=== PATIENT | female | born 1975 | race Caucasian/White ===

== ENCOUNTER 2024-10-26 19:28 | Observation (INO) | payer OTHER ==
[~2024-10-26] VITALS: Ht 162.6 cm; Wt 83.9 kg
[2024-10-26] MEDS: ADENOSINE 6 MG/2 ML VIAL IV STA ×2 (20:18→20:19)
[2024-10-26 20:19] LABS: BASOPHILS # (AUTO) 0.1 (0.0-0.1); BASOPHILS % 0.7 % (0.0-1.0); EOSINOPHILS # (AUTO) 0.3 (0.0-0.4); EOSINOPHILS % 2.6 % (0.0-6.0); HEMATOCRIT 39.9 % (34.2-44.1); HEMOGLOBIN 13.6 g/dL (12.0-16.0); LYMPHOCYTES # (AUTO) 3.8 (1.0-3.2); LYMPHOCYTES % 31.3 % (18.0-39.1); MEAN CORPUSCULAR HEMOGLOBIN 29.5 pg (28-32); MEAN CORPUSCULAR HGB CONC 34.1 g/dL (31-35); MEAN CORPUSCULAR VOLUME 86.6 fL (81-99); MONOCYTES # (AUTO) 0.9 (0.2-0.8); MONOCYTES % 7.6 % (4.4-11.3); NEUTROPHILS % 57.5 % (38.7-80.0); PLATELET COUNT 428 x10e3/uL (140-360); RED BLOOD COUNT 4.61 x10e6/uL (3.6-5.1); RED CELL DISTRIBUTION WIDTH 13.1 % (11.7-14.4); WHITE BLOOD COUNT 12.15 x10e3/uL (4.8-10.8)
[2024-10-26] MEDS ORDERED: ONDANSETRON HCL INJ 2MG/ML 2ML 2 MG/ML VIAL IV PRN (20:30)
[2024-10-26] MEDS: DIGOXIN INJ 0.25 MG/ML 2 ML AMP IV STA (20:31)
[2024-10-26 20:37] LABS: ETHANOL < 10.0 mg/dL (0.0-10.0); LIPASE 43 U/L (8-78)
[2024-10-26 20:38] LABS: ALANINE AMINOTRANSFERASE 11 IU/L (0-55); ALBUMIN 3.9 g/dL (3.5-5.0); ALBUMIN/GLOBULIN RATIO 1.2 (0.8-2.0); ALKALINE PHOSPHATASE 87 IU/L (40-150); ANION GAP 16.7 mmol/L (8-16); BILIRUBIN,TOTAL 0.2 mg/dL (0.2-1.2); BLOOD UREA NITROGEN 9 mg/dL (7-26); BUN/CREATININE RATIO 13 (6-25); CALCIUM 9.3 mg/dL (8.4-10.2); CARBON DIOXIDE 18 mmol/L (22-29); CHLORIDE 107 mmol/L (98-107); CREATINE KINASE 65 IU/L (29-168); EST GLOMERULAR FILTRATION RATE 107 ML/MIN (>=60); GLUCOSE 107 mg/dL (74-118); POTASSIUM 3.7 mmol/L (3.5-5.1); SODIUM 138 mmol/L (136-145); TOTAL PROTEIN 7.2 g/dL (6.5-8.1)
[2024-10-26] MEDS: METOPROLOL TARTRATE INJ 1 MG/ML VIAL IV STA (20:44)
[2024-10-26 20:45] LABS: TROPONIN I < 0.001 ng/mL (0-0.300)
[2024-10-26] MEDS: SODIUM CHLORIDE 0.9% 1000ML 1,000 ML IV SCH (21:00)
[2024-10-26 21:48] LABS: AMPHETAMINES SCREEN,URINE NEGATIVE (NEGATIVE); BENZODIAZEPINES SCREEN,URINE NEGATIVE (NEGATIVE); CANNABINOIDS SCREEN,URINE NEGATIVE (NEGATIVE); COCAINE SCREEN,URINE NEGATIVE (NEGATIVE); METHADONE SCREEN, URINE NEGATIVE (NEGATIVE); OPIATES SCREEN,URINE NEGATIVE (NEGATIVE); PHENCYCLIDINE SCREEN,URINE NEGATIVE (NEGATIVE); PREGNANCY TEST, URINE NEGATIVE (NEGATIVE)
[2024-10-26 22:25] VITALS: PULSE 87; RESP 20; O2SAT 99
[2024-10-26 23:00] VITALS: PULSE 80; RESP 16; TEMP 98
[2024-10-26 23:45] VITALS: BP 119/78; PULSE 71; RESP 18; TEMP 98.6; O2SAT 99
[2024-10-27] VITALS: BP 119/78; PULSE 71; RESP 18; TEMP 98.6; O2SAT 99
[2024-10-27] MEDS ORDERED: PAXIL20 MG PO (00:05)
[2024-10-27] MEDS ORDERED: losartan/hctz (00:05)
[2024-10-27] MEDS ORDERED: NEURONTIN300 MG PO (00:05)
[2024-10-27] MEDS ORDERED: AMLODIPINE BESY10 MG PO (00:05)
[2024-10-27] MEDS ORDERED: PANTOPRAZOLE SO40 MG PO (00:05)
[2024-10-27] MEDS ORDERED: LOSARTAN-HCTZ1 EAC2 PO (00:05)
[2024-10-27] MEDS ORDERED: METHOCARBAMOL750 MG PO (00:05)
[2024-10-27] MEDS ORDERED: IBUPROFEN800 MG PO (00:05)
[2024-10-27] MEDS ORDERED: DIPHENHYDRAMINE HCL 25 MG CAP PO PRN (00:30)
[2024-10-27] MEDS ORDERED: ALBUTEROL/IPRATROPIUM 3 ML NEB NEB PRN (00:30)
[2024-10-27] MEDS ORDERED: MELATONIN 5 MG TABLET PO PRN (00:30)
[2024-10-27] MEDS ORDERED: DOCUSATE SODIUM 100 MG CAP PO PRN (00:30)
[2024-10-27] MEDS ORDERED: ACETAMINOPHEN 325 MG TAB PO PRN (00:30)
[2024-10-27] MEDS ORDERED: POTASSIUM CHLORIDE 20 MEQ TAB CR PO PRN (00:30)
[2024-10-27] MEDS ORDERED: LIDOCAINE 4% PATCH TP PRN (00:30)
[2024-10-27] MEDS ORDERED: BENZONATATE 100 MG CAP PO PRN (00:30)
[2024-10-27] MEDS ORDERED: HYDRALAZINE HCL 20 MG/ML VIAL IV PRN (00:30)
[2024-10-27] MEDS ORDERED: DEXTROSE 50% SYRINGE 50 ML IV PRN (00:30)
[2024-10-27] MEDS ORDERED: SIMETHICONE 80 MG CHEW PO PRN (00:30)
[2024-10-27] MEDS: METOPROLOL TARTRATE 25 MG TAB PO SCH (01:41)
[2024-10-27 04:00] VITALS: BP 112/66; PULSE 58; RESP 18; TEMP 98.3; O2SAT 98
[2024-10-27 05:59] LABS: BASOPHILS # (AUTO) 0.1 (0.0-0.1); BASOPHILS % 0.9 % (0.0-1.0); EOSINOPHILS # (AUTO) 0.2 (0.0-0.4); EOSINOPHILS % 1.8 % (0.0-6.0); HEMATOCRIT 37.2 % (34.2-44.1); HEMOGLOBIN 12.4 g/dL (12.0-16.0); LYMPHOCYTES # (AUTO) 2.4 (1.0-3.2); LYMPHOCYTES % 27.7 % (18.0-39.1); MEAN CORPUSCULAR HEMOGLOBIN 29.3 pg (28-32); MEAN CORPUSCULAR HGB CONC 33.3 g/dL (31-35); MEAN CORPUSCULAR VOLUME 87.9 fL (81-99); MONOCYTES # (AUTO) 0.7 (0.2-0.8); MONOCYTES % 8.5 % (4.4-11.3); NEUTROPHILS # (AUTO) 5.2 (2.1-6.9); NEUTROPHILS % 60.9 % (38.7-80.0); PLATELET COUNT 355 x10e3/uL (140-360); RED BLOOD COUNT 4.23 x10e6/uL (3.6-5.1); RED CELL DISTRIBUTION WIDTH 12.9 % (11.7-14.4); WHITE BLOOD COUNT 8.55 x10e3/uL (4.8-10.8)
[2024-10-27 06:23] VITALS: PULSE 74; RESP 22; O2SAT 98
[2024-10-27 06:36] LABS: ALBUMIN 3.4 g/dL (3.5-5.0); ALBUMIN/GLOBULIN RATIO 1.2 (0.8-2.0); ANION GAP 12.5 mmol/L (8-16); BILIRUBIN,TOTAL 0.3 mg/dL (0.2-1.2); CALCIUM 8.9 mg/dL (8.4-10.2); CREATININE, SERUM 0.69 mg/dL (0.57-1.11); POTASSIUM 3.5 mmol/L (3.5-5.1); TOTAL PROTEIN 6.2 g/dL (6.5-8.1)
[2024-10-27 06:57] LABS: CHOL/HDL RATIO 5.1 (3.0-3.6)
[2024-10-27 07:08] LABS: TROPONIN I 0.122 ng/mL (0-0.300)
[2024-10-27 07:17] LABS: THYROID STIMULATING HORMONE 1.681 uIU/mL (0.350-4.940)
[2024-10-27 07:35] VITALS: BP 105/66; PULSE 67; RESP 20; TEMP 98; O2SAT 96
[2024-10-27 09:15] VITALS: BP 105/66; PULSE 67; RESP 20; TEMP 98; O2SAT 96
[2024-10-27 09:50] VITALS: BP 105/66; PULSE 67
[2024-10-27] MEDS: METOPROLOL SUCCINATE 50 MG TAB XL PO SCH (09:50)
[2024-10-27] MEDS: PANTOPRAZOLE SOD 40 MG TABEC PO SCH (09:51)
[2024-10-27] MEDS ORDERED: METOPROLOL SUCC50 MG PO (15:07)
[2024-10-27] MEDS ORDERED: ENOXAPARIN SOD INJ 40 MG/0.4 ML SYR SC SCH (17:00)
== END 2024-10-27 16:24 | disposition home or self-care (01) ==
LOC: ER 19:35 → ERHOLD 20:25 → MED/SURG2 23:31
PROVIDERS: ADMIT Internal Medicine; ATTEND Internal Medicine
DX: I47.10 Supraventricular tachycardia, unspecified (principal); I10 Essential (primary) hypertension; F17.210 Nicotine dependence, cigarettes, uncomplicated; E66.9 Obesity, unspecified; Z68.31 Body mass index [BMI] 31.0-31.9, adult; K21.9 Gastro-esophageal reflux disease without esophagitis; F41.9 Anxiety disorder, unspecified
CPT/HCPCS: 36415 ×2; 71045; 80053 ×2; 80061; 80307; 80320; 81025; 82550 ×2; 83036; 83690; 83735; 83880; 84443; 84484 ×2; 85025 ×2; 93005; 94799 ×2; 99284; G0378 ×2; J0153; J1160; J7030; S0164; J2470